=== PATIENT | female | born 1935 | race Caucasian/White ===

== ENCOUNTER 2016-12-12 12:54 | Inpatient (IN) | payer MEDICARE, OTHER ==
[~2016-12-12] VITALS: Ht 160 cm; Wt 60.5 kg
[2016-12-12] MEDS ORDERED: DORZ2SOL15 EACH EYE (13:50)
[2016-12-12] MEDS ORDERED: ASPI-110 PO (13:50)
[2016-12-12] MEDS ORDERED: TRAV0.00 LEFT EYE (13:50)
[2016-12-12] MEDS ORDERED: RISE1TAB PO (13:50)
[2016-12-12] MEDS ORDERED: MULT-65 PO (13:50)
[2016-12-12] MEDS ORDERED: ROSU10 PO (13:50)
[2016-12-18] VITALS (10 sets, daily range): BP systolic 115–162; BP diastolic 39–78; PULSE 20–85; RESP 9–18; TEMP 96.9–98.6; O2SAT 93–98
[2016-12-18] MEDS ORDERED: AMINOCAPROIC ACID INJ 250 MG/ML 20 ML VIAL IV ONE ×2 (05:00→08:09)
[2016-12-18] MEDS ORDERED: HEPARIN SODIUM - SQ 10,000 UNITS/ML VIAL SQ ONE (05:00)
[2016-12-18] MEDS ORDERED: NITROGLYCERIN-DEXTROSE INJ 250 ML IV ONE (05:00)
[2016-12-18] MEDS ORDERED: ARTIFICIAL TEARS OPTH OINT 3.5 APPLIC/3.5 GM TUBO ONE (05:00)
[2016-12-18] MEDS ORDERED: MAGNESIUM SULFATE 1000 MG/2 ML VIAL (PED) IV ONE (05:00)
[2016-12-18] MEDS ORDERED: VECURONIUM BROMIDE 10 MG VIAL IV ONE (05:00)
[2016-12-18] MEDS ORDERED: PHENYLEPHRINE HCL 10 MG/ML VIAL IV ONE (05:00)
[2016-12-18] MEDS ORDERED: PROTAMINE SULFATE 250 MG/25 ML VIAL IV ONE (05:00)
[2016-12-18] MEDS ORDERED: CALCIUM CHLORIDE 10% SOLN 1 GRAM/10 ML SYR IV ONE (05:00)
[2016-12-18] MEDS ORDERED: LIDOCAINE HCL 1% 30 ML VIAL OTHER ONE (05:00)
[2016-12-18] MEDS ORDERED: SODIUM CHLORIDE 0.9% FLUSH 10 ML FLUSH IV FLUSH PRN ×3 (05:45→12:30)
[2016-12-18] MEDS ORDERED: LACTATED RINGER'S 1000 ML IV PRN (05:45)
[2016-12-18] MEDS ORDERED: POVIDONE IODINE 5% (ANTISEPSIS KIT) 4 APPLICATIONS EACH NARE PRN (05:45)
[2016-12-18] MEDS ORDERED: CHLORHEXIDINE GLUCONATE 2 % 1 PACK (2 CLOTHS) TOPICAL PRN (05:45)
[2016-12-18] MEDS ORDERED: CHLORHEXIDINE GLUCONATE 4% SOLN 120 ML BTL TOPICAL SCH (05:45)
[2016-12-18] MEDS ORDERED: SODIUM CHLORID 0.9% 500 ML IV PRN (05:45)
[2016-12-18] MEDS ORDERED: VANCOMYCIN 1000 MG/NS 250 ML IV SCH ×2 (05:45)
[2016-12-18] MEDS ORDERED: INSULIN HUMAN REGULAR 1,000 UNITS/10 ML VIAL SQ PRN (05:45)
[2016-12-18] MEDS ORDERED: INSULIN REGULAR 100 UNITS in NS 100 ML IV SCH (05:45)
[2016-12-18] MEDS ORDERED: VANCOMYCIN 1000 MG in NS IRR BTL 1000 ML IRRIGATION SCH (05:45)
[2016-12-18] MEDS ORDERED: METOPROLOL TARTRATE 25 MG TAB PO SCH (05:45)
[2016-12-18] MEDS ORDERED: VANCOMYCIN HCL 1000 MG VIAL ONE (07:07)
[2016-12-18] MEDS ORDERED: HEPARIN SODIUM - SQ 10,000 UNITS/ML VIAL ONE ×2 (07:07→07:10)
[2016-12-18] MEDS ORDERED: methylPREDNISolone SOD SUCC 125 MG/2 ML VIAL ONE (07:07)
[2016-12-18] MEDS ORDERED: CUSTODIOL HTK IRR SOLN 1,000 ML ONE (07:09)
[2016-12-18] MEDS ORDERED: POTASSIUM CHLORIDE 20 MEQ/10 ML VIAL ONE (07:09)
[2016-12-18] MEDS ORDERED: SODIUM BICARBONATE 8.4% INJ 50 ML ONE (07:09)
[2016-12-18] MEDS ORDERED: ALBUMIN HUMAN 25% 12.5 GM/50 ML BAGP IV ONE (07:10)
[2016-12-18] MEDS ORDERED: MANNITOL INJ 50 ML ONE (07:10)
[2016-12-18] MEDS ORDERED: HEPARIN SODIUM - IV 10,000 UNITS/10 ML VIAL ONE (07:11)
[2016-12-18] MEDS ORDERED: BUPIVACAINE HCL PF 0.5% 30 ML VIAL ONE (07:44)
[2016-12-18] MEDS ORDERED: LACTATED RINGER'S 1000 ML INJ 2,000 ML IV ONE (08:09)
[2016-12-18] MEDS ORDERED: SODIUM CHLOR 0.9% 250 ML INJ 500 ML IV ONE (08:10)
[2016-12-18] MEDS ORDERED: SODIUM CHLORID 0.9% 500 ML INJ 500 ML IV ONE (08:10)
[2016-12-18] MEDS ORDERED: SODIUM CHLORIDE 0.9% INJ 100 ML IV ONE (08:10)
[2016-12-18] MEDS ORDERED: NORMOSOL R INJ 2,000 ML IV ONE (08:11)
[2016-12-18] MEDS: MUPIROCIN 2% OINT 22 GM TUBE EACH NARE SCH ×2 (09:00→21:00)
[2016-12-18] MEDS ORDERED: LACTATED RINGER'S 1000 ML INJ 500 ML IV PRN (12:28)
[2016-12-18] MEDS ORDERED: ACETAMINOPHEN 650 MG SUPP RECTAL PRN (12:30)
[2016-12-18] MEDS ORDERED: DEXTROSE 50% IN WATER 50 ML VIAL(D50) IV PUSH PRN (12:30)
[2016-12-18] MEDS ORDERED: CLEVIDIPINE INJ 50 ML IV SCH (12:30)
[2016-12-18] MEDS ORDERED: POTASSIUM CHLOR 20 MEQ PREMIX 100 ML IV PRN ×3 (12:30)
[2016-12-18] MEDS ORDERED: CALCIUM CHLORIDE 10% 1 GRAM/10 ML VIAL IV PRN (12:30)
[2016-12-18] MEDS ORDERED: MAGNESIUM SULFATE INJ 2 GM in SODIUM CHLORIDE 0.9% INJ 100 ML IV PRN ×4 (12:30)
[2016-12-18] MEDS ORDERED: INSULIN REGULAR (IV INFUSION) 100 UNITS in SODIUM CHLORIDE 0.9% INJ 99 ML IV SCH (12:30)
[2016-12-18] MEDS ORDERED: hydrALAZINE HCL 20 MG/ML VIAL IV PRN (12:30)
[2016-12-18] MEDS ORDERED: METOPROLOL TARTRATE 5 MG/5 ML VIAL IV PUSH PRN (12:30)
[2016-12-18] MEDS ORDERED: Post-op Orders (for Pharmacy) MISC OTHER ONE (12:30)
[2016-12-18] MEDS ORDERED: ACETAMINOPHEN 325 MG TAB PO PRN (12:30)
[2016-12-18] MEDS ORDERED: RESP: RACEPINEPHRINE 2.25% 0.5 ML NEB NEB PRN (12:30)
[2016-12-18] MEDS ORDERED: POTASSIUM CHLORIDE 20 MEQ CONTROLLED RELEASE TAB PO PRN ×2 (12:30)
[2016-12-18] MEDS ORDERED: RESP: ALBUTEROL 2.5 MG/IPRATROPIUM 0.5 MG NEB (PRN) NEB (12:30)
--- NOTE | 2016-12-18 12:50 | PD.OP ---
cc: Melisa Siddiqui MD; Manny Beavers MD Operative Report Date of Surgery: Dec 18, 2016 Preoperative Diagnosis: (1) Aortic stenosis due to bicuspid aortic valve (2) Diastolic CHF due to valvular disease Postoperative Diagnosis: same Procedure: Minimally invasive AVR with a 19 Intuit tissue valve MYRNA Ultrasound guided percutaneous cannulation left femoral artery and vein, perclose closure of artery Anesthesia: Dr. Duckworth Surgeon: Melisa Siddiqui Booth Operator(s): HONEY Robles Operation and Findings: The risks, benefits, complications, treatment options, and expected outcomes were discussed with the patient. The possibilities of reaction to medication, pulmonary aspiration, perforation of viscus, bleeding, recurrent infection, the need for additional procedures, failure to diagnose a condition, and creating a complication requiring transfusion or operation were discussed with the patient. The patient concurred with the proposed plan, giving informed consent. The site of surgery properly noted/marked. The patient was taken to Operating Room, identified as Brunilda Alejandra and the procedure verified as Minimally Invasive Aortic Valve Replacement. A Time Out was held and the above information confirmed. Standard monitoring lines and Cordova catheter were placed. General anesthesia was induced. The patient was prepped and draped in a sterile fashion. A 6 cm right anterior thoracotomy was performed and the 3rd rib was shingled. An Siddharth retractor was placed followed by a small chest retractor. The pericardium was opened and a pericardial sling was created using interrupted 0 silk sutures. A small 1 cm incision was made at the 6th intercostal space and an LV vent and pericardial suction were placed through this access port. The aorta was dissected posteriorly for crossclamp placement. Percutaneous access of the left femoral artery and vein was acquired with ultrasound guidance. A glide wire was required to pass the wire through the femoral artery. 2 Perclose devices were deployed in the artery for later arterial closure. The patient was heparinized for cardiopulmonary bypass. The left femoral artery was cannulated with a 15F [employer] arterial cannula. The left femoral vein was cannulated with a 21 [employer] cannula under MYRNA guidance. Antegrade Custodiol cardioplegia were employed. The patient was placed on cardiopulmonary bypass. An aortic cross-clamp was applied and the heart was arrested using cold blood cardioplegia delivered through a 14F catheter. The aorta was opened above the sinotubular ridge and the aortic valve was exposed. On opening the aorta, the valve appeared functionally bicuspid with fusion of the right and left cusps. The valve was resected as well as all annular calcification, sized for a 19 mm Intuity tissue valve which was placed with 3, 2-0 Tycron valve sutures. The valve seated well and balloon deployed. The aorta was closed with running 4-0 Prolene suture. The patient systemically rewarmed and received a hotshot dose of warm blood cardioplegia. The heart was vigorously deaired with a clamp on. The clamp was removed, deairing continued. The patient was easily weaned from cardiopulmonary bypass. Decannulation was carried out without incident and the artery was closed with the Perclose devices. The vein was controlled with digital pressure. Protamine was given. There was no adverse reaction. Intraoperative MYRNA following the procedure showed a well-seated aortic valve with no perivalvular leak and preserved ventricular function. A 32F chest tube was placed through the access port and secured with a 0 silk suture. Wound was checked for hemostasis was obtained using electrocautery. The 3rd rib was reapproximated to the sternum using a plating system. The fascia and pectoralis were closed with 0 Vicryl. The subcutaneous tissue was closed using a running 3- 0 Monocryl suture. The skin was closed with 4-0 Monocryl. The groin was closed in 2 layers. Sterile dressings were placed. At the end of the operation, all sponge, instruments, and needle counts were correct. The patient was transferred to the CVICU in stable condition. Melisa Siddiqui MD Dec 18, 2016 12:50
[2016-12-18] MEDS ORDERED: fentaNYL CITRATE 1000 MCG/20 ML VIAL ONE (13:21)
[2016-12-18] MEDS ORDERED: MIDAZOLAM HCL 5 MG/5 ML VIAL ONE ×2 (13:21)
[2016-12-18] MEDS: ACETAMINOPHEN 1000 MG/100 ML VIAL IV SCH ×2 (13:51→21:37)
--- NOTE | 2016-12-18 14:25 | RADRPT ---
EXAM DATE/TIME: 12/18/2016 13:14 [facility] COMPARISON: CHEST PA & LAT, December 12, 2016, 14:36. INDICATIONS : Post CABG. MEDICAL HISTORY : Osteoarthritis. SURGICAL HISTORY : CABG. ENCOUNTER: Subsequent ACUITY: 1 week PAIN SCORE: Non-responsive. LOCATION: Bilateral chest FINDINGS: Patient postoperative what appears to be aortic valve replacement. Right central line in right atrium . Right chest tube present. Bilateral somewhat patchy airspace disease and interstitial prominence wh ich may or present mild edema. Likely trace pleural fluid present. No significant pneumothorax. CONCLUSION: 1. Postoperative aortic valve replacement. Right chest tube without pneumothorax. Right central line in right atrium. Bilateral airspace disease, right greater than left. Elijah Hyatt MD on December 18, 2016 at 14:21 Board Certified Radiologist. This report was verified electronically.
[2016-12-18] MEDS: ONDANSETRON HCL 4 MG/2 ML VIAL IV PUSH PRN (16:11)
[2016-12-18] MEDS: RESP: ALBUTEROL 2.5 MG/IPRATROPIUM 0.5 MG NEB (SCH) NEB ×2 (16:23→21:25)
[2016-12-18] MEDS: CALCIUM CHLORIDE INJ 1 GM in SODIUM CHLORIDE 0.9% INJ 100 ML IV PRN ×2 (16:39→21:37)
[2016-12-18] MEDS: LATANOPROST 0.005% OPHT SOLN 2.5 ML BTL LEFT EYE SCH (21:00)
[2016-12-18] MEDS: DORZOLAMIDE/TIMOLOL OPTH SOLN 10 ML BTL EACH EYE SCH (21:00)
[2016-12-19] VITALS (13 sets, daily range): BP systolic 119–148; BP diastolic 46–68; PULSE 76–96; RESP 14–18; TEMP 97.4–99.1; O2SAT 93–98
[2016-12-19] MEDS: ACETAMINOPHEN 1000 MG/100 ML VIAL IV SCH ×2 (01:58→08:12)
[2016-12-19] MEDS: RESP: ALBUTEROL 2.5 MG/IPRATROPIUM 0.5 MG NEB (SCH) NEB ×5 (04:19→19:57)
[2016-12-19 04:41] LABS: HEMATOCRIT 36.4 % (35.0-46.0); MEAN CELL VOLUME 89.4 FL (80.0-100.0); MEAN CORPUSCULAR HEMOGLOBIN 30.1 PG (27.0-34.0); MEAN CORPUSCULAR HGB CONC 33.6 % (32.0-36.0); PLATELET COUNT 126 TH/MM3 (150-450); RED BLOOD COUNT 4.07 MIL/MM3 (4.00-5.30); RED CELL DISTRIBUTION WIDTH 13.4 % (11.6-17.2); REVIEW FLAG FINAL
[2016-12-19 05:17] LABS: BICARBONATE 27.6 MEQ/L (21.0-32.0); MAGNESIUM 2.2 MG/DL (1.5-2.5)
[2016-12-19] MEDS: PANTOPRAZOLE SOD 40 MG DELAYED RELEASE TAB PO SCH (06:08)
[2016-12-19] MEDS: ONDANSETRON HCL 4 MG/2 ML VIAL IV PUSH PRN ×2 (06:08→22:28)
--- NOTE | 2016-12-19 06:10 | RADRPT ---
EXAM DATE/TIME: 12/19/2016 04:54 [facility] COMPARISON: CHEST SINGLE AP, December 18, 2016, 13:14. INDICATIONS : Chest pain after breathing treatments. MEDICAL HISTORY : Chronic obstructive pulmonary disease. SURGICAL HISTORY : Valve replacement. ENCOUNTER: Initial ACUITY: 2 days PAIN SCORE: 7/10 LOCATION: Bilateral chest FINDINGS: A single view of the chest demonstrates better aeration of the lungs. Minimal interstitial edema. Hea rt normal in size. Right-sided chest tube stable position without pneumothorax. Right jugular central line is stable as well. Osseous structures are intact. CONCLUSION: Lungs are better aerated with some minimal interstitial edema. Irwin Dorman MD on December 19, 2016 at 6:07 Board Certified Radiologist. This report was verified electronically.
[2016-12-19] MEDS ORDERED: RISEDRONATE 5 MG PO SCH (09:00)
[2016-12-19] MEDS: MUPIROCIN 2% OINT 22 GM TUBE EACH NARE SCH (09:00)
[2016-12-19] MEDS: DORZOLAMIDE/TIMOLOL OPTH SOLN 10 ML BTL EACH EYE SCH (09:05)
[2016-12-19] MEDS: ASPIRIN 81 MG CHEW TAB PO SCH (09:06)
[2016-12-19] MEDS: ATORVASTATIN 20 MG TAB PO SCH (09:06)
[2016-12-19] MEDS: MULTIVITAMIN TAB PO SCH (09:06)
[2016-12-19] MEDS ORDERED: FUROSEMIDE 40 MG/4 ML VIAL IV PUSH ONE (10:15)
[2016-12-19] MEDS ORDERED: diphenhydrAMINE HCL 50 MG CAP PO PRN (10:15)
[2016-12-19] MEDS ORDERED: DEXTROSE 50% IN WATER 50 ML VIAL(D50) IV PRN (10:15)
[2016-12-19] MEDS ORDERED: SOD PHOSPHATE/SOD BIPHOSPHATE (ADULT) ENEMA 133ML RECTAL PRN (10:15)
[2016-12-19] MEDS ORDERED: BISACODYL 10 MG SUPP RECTAL PRN (10:15)
[2016-12-19] MEDS ORDERED: GLUCAGON 1 MG/ML VIAL OTHER PRN (10:15)
--- NOTE | 2016-12-19 10:21 | PD.CAR.PN ---
CVT Progress Note CVT: POD #: 1 Subjective/Hospital Course: 12/18/16 Doing well. No complaints Objective: Vital Signs Date Time Temp Pulse Resp B/P Pulse Ox O2 Delivery O2 Flow Rate FiO2 12/19/16 08:46 95 Nasal Cannula 4.00 12/19/16 07:09 14 12/19/16 07:00 89 12/19/16 07:00 98 Nasal Cannula 4.00 12/19/16 07:00 98.7 87 14 119/50 96 134/46 12/19/16 04:19 98 Nasal Cannula 4.00 12/19/16 04:00 86 12/19/16 04:00 98.2 86 16 130/53 98 142/50 12/19/16 04:00 98 Nasal Cannula 4.00 12/19/16 03:00 97 Nasal Cannula 4.00 12/19/16 01:00 97 Simple Mask 6.00 12/19/16 00:00 97.4 92 18 131/60 96 148/51 12/19/16 00:00 96 Simple Mask 8.00 12/19/16 00:00 92 12/18/16 21:25 97 Simple Mask 10.00 12/18/16 20:00 96 Simple Mask 10.00 12/18/16 20:00 82 12/18/16 20:00 98.0 83 18 115/56 96 128/58 12/18/16 16:36 97 Nasal Cannula 4.00 12/18/16 16:20 98.6 12/18/16 15:00 80 12/18/16 15:00 98 Partial Non-Rebreather 10.00 12/18/16 15:00 96.9 76 12 140/68 98 148/63 12/18/16 14:21 9 12/18/16 13:42 65 12/18/16 13:17 98.6 12/18/16 13:10 94 Simple Mask 10.00 12/18/16 13:00 97.4 70 9 119/39 94 133/53 12/18/16 13:00 94 Partial Non-Rebreather 10.00 Labs: Laboratory Tests Test 12/19/16 04:15 White Blood Count 17.0 TH/MM3 (4.0-11.0) Red Blood Count 4.07 MIL/MM3 (4.00-5.30) Hemoglobin 12.2 GM/DL (11.6-15.3) Hematocrit 36.4 % (35.0-46.0) Mean Corpuscular Volume 89.4 FL (80.0-100.0) Mean Corpuscular Hemoglobin 30.1 PG (27.0-34.0) Mean Corpuscular Hemoglobin 33.6 % Concent (32.0-36.0) Red Cell Distribution Width 13.4 % (11.6-17.2) Platelet Count 126 TH/MM3 (150-450) Mean Platelet Volume 9.6 FL (7.0-11.0) Sodium Level 142 MEQ/L (136-145) Potassium Level 4.0 MEQ/L (3.5-5.1) Chloride Level 106 MEQ/L (98-107) Carbon Dioxide Level 27.6 MEQ/L (21.0-32.0) Anion Gap 8 MEQ/L (5-15) Blood Urea Nitrogen 16 MG/DL (7-18) Creatinine 0.77 MG/DL (0.50-1.00) Estimat Glomerular Filtration 72 ML/MIN (>89) Rate Random Glucose 83 MG/DL (74-106) Calcium Level 8.5 MG/DL (8.5-10.1) Magnesium Level 2.2 MG/DL (1.5-2.5) Result Diagram: 12/19/1641412/19/16 0415 Imaging: Last 24 hours Impressions Chest X-Ray 12/19/16 0500 Signed Impressions: Service Date/Time: Monday, December 19, 2016 04:54 - CONCLUSION: Lungs are better aerated with some minimal interstitial edema. Irwin Droman MD Cardiovascular: RRR Telemetry: NSR Pulmonary: CTA, few crackles GI/: NABS, NT Incision: dry and intact CT: 70ml/12 hrs. Plan: Encourage ambulation Beta june Diurese Supp K Advance diet continue ASA Transfer to stepdown Melisa Siddiqui MD Dec 19, 2016 10:21
[2016-12-19] MEDS: METOPROLOL TARTRATE 25 MG TAB PO SCH ×2 (12:41→22:32)
[2016-12-19] MEDS: INSULIN ASPART SUPPLEMENTAL SCALE SQ SCH ×3 (14:16→23:22)
--- NOTE | 2016-12-19 16:33 | EKG ---
Date Performed: 12/19/2016 Time Performed: 04:30:12 PTAGE: 81 years EKG: Sinus rhythm Normal ECG PREVIOUS TRACING 12/12/16 @ 13.27.12 Compared to prior tracing no significant change DOCTOR: Nixon Huerta Interpretating Date/Time 12/19/2016 16:32:42
[2016-12-19] MEDS: DOCUSATE SODIUM 100 MG CAP PO SCH (22:30)
[2016-12-19] MEDS: LATANOPROST 0.005% OPHT SOLN 2.5 ML BTL LEFT EYE SCH (22:30)
[2016-12-19] MEDS: SENNOSIDES 8.6 MG TAB PO SCH (22:46)
[2016-12-19] MEDS: ACETAMINOPHEN/HYDROcodone 325 MG/5 MG TAB PO PRN (23:05)
[2016-12-20] VITALS (26 sets, daily range): BP systolic 98–137; BP diastolic 45–82; PULSE 78–100; RESP 16–18; TEMP 97.2–98.2; O2SAT 94–100
[2016-12-20] MEDS: PANTOPRAZOLE SOD 40 MG DELAYED RELEASE TAB PO SCH (06:00)
[2016-12-20 06:59] LABS: BICARBONATE 33.3 MEQ/L (21.0-32.0); MAGNESIUM 2.3 MG/DL (1.5-2.5); POTASSIUM 4.3 MEQ/L (3.5-5.1)
[2016-12-20 07:14] LABS: AUTOMATED NEUTROPHIL # 13.6 TH/MM3 (1.8-7.7); EOSINOPHIL % 0.1 % (0.0-4.0); HEMATOCRIT 34.3 % (35.0-46.0); LYMPHOCYTE # 1.7 TH/MM3 (1.0-4.8); MEAN CELL VOLUME 90.7 FL (80.0-100.0); MEAN CORPUSCULAR HEMOGLOBIN 30.2 PG (27.0-34.0); MEAN CORPUSCULAR HGB CONC 33.3 % (32.0-36.0); MONO % 9.2 % (0.0-8.0); NEUT % 80.7 % (16.0-70.0); PLATELET COUNT 98 TH/MM3 (150-450); RED BLOOD COUNT 3.78 MIL/MM3 (4.00-5.30); RED CELL DISTRIBUTION WIDTH 13.9 % (11.6-17.2); WHITE BLOOD COUNT 16.9 TH/MM3 (4.0-11.0)
--- NOTE | 2016-12-20 07:15 | PD.CAR.PN ---
CVT Progress Note CVT: POD #: 2 Subjective/Hospital Course: 12/19/16 Doing well. No complaints 12/20/16 Doing well this morning. No complaints. Objective: Vital Signs Date Time Temp Pulse Resp B/P Pulse Ox O2 Delivery O2 Flow Rate FiO2 12/20/16 04:36 97.2 83 16 103/51 97 12/20/16 04:17 95 Nasal Cannula 3.00 12/20/16 01:20 98.2 88 16 124/65 94 12/20/16 01:18 94 Nasal Cannula 3.00 12/19/16 21:00 98 Nasal Cannula 3.00 12/19/16 20:30 99.1 96 16 121/55 95 12/19/16 19:57 93 Nasal Cannula 3.00 12/19/16 18:00 87 12/19/16 17:00 86 12/19/16 16:00 83 12/19/16 15:00 97.6 81 18 130/68 97 12/19/16 15:00 87 12/19/16 15:00 97 Nasal Cannula 3.00 12/19/16 11:38 97 3.00 12/19/16 11:00 97.7 76 16 128/60 98 Arterial Line 12/19/16 11:00 76 12/19/16 11:00 98 Nasal Cannula 4.00 12/19/16 08:46 95 Nasal Cannula 4.00 Labs: Laboratory Tests Test 12/20/16 05:45 Sodium Level 140 MEQ/L (136-145) Potassium Level 4.3 MEQ/L (3.5-5.1) Chloride Level 103 MEQ/L (98-107) Carbon Dioxide Level 33.3 MEQ/L (21.0-32.0) Anion Gap 4 MEQ/L (5-15) Blood Urea Nitrogen 23 MG/DL (7-18) Creatinine 0.74 MG/DL (0.50-1.00) Estimat Glomerular Filtration 75 ML/MIN (>89) Rate Random Glucose 94 MG/DL (74-106) Calcium Level 8.3 MG/DL (8.5-10.1) Magnesium Level 2.3 MG/DL (1.5-2.5) Result Diagram: 12/19/16 0415 12/20/16 0545 Cardiovascular: RRR Telemetry: NSR Pulmonary: CTA GI/: NABS, NT Incision: dry and intact CT: ~70ml/12hrs Plan: Ambulate x 6 Remove chest tube Encourage PO intake, stim BM Anticipate d/c in 1-2 days Melisa Siddiqui MD Dec 20, 2016 07:15
[2016-12-20 07:23] LABS: HEMO FLAGS AUTO DIFF
[2016-12-20] MEDS: MULTIVITAMINS/MINERALS THERAPEUTIC TAB PO SCH (08:57)
[2016-12-20] MEDS: ASPIRIN 81 MG CHEW TAB PO SCH (08:58)
[2016-12-20] MEDS: MAGNESIUM HYDROXIDE SUSP 30 ML CUP PO SCH (08:58)
[2016-12-20] MEDS: MULTIVITAMIN TAB PO SCH (08:58)
[2016-12-20] MEDS: POLYETHYLENE GLYCOL 17 GM PKG PO SCH (08:58)
[2016-12-20] MEDS: ATORVASTATIN 20 MG TAB PO SCH (08:59)
[2016-12-20] MEDS: METOPROLOL TARTRATE 25 MG TAB PO SCH ×2 (08:59→20:26)
[2016-12-20] MEDS: ACETAMINOPHEN/HYDROcodone 325 MG/5 MG TAB PO PRN (09:00)
[2016-12-20] MEDS: MUPIROCIN 2% OINT 22 GM TUBE EACH NARE SCH ×2 (09:00→20:26)
[2016-12-20] MEDS: DOCUSATE SODIUM 100 MG CAP PO SCH ×2 (09:00→20:26)
[2016-12-20] MEDS: DORZOLAMIDE/TIMOLOL OPTH SOLN 10 ML BTL EACH EYE SCH ×2 (09:01→20:23)
[2016-12-20 09:02] LABS: BANDS 20 % (0-6); METAMYELOCYTES 1 % (0-1); NEUTROPHIL # MANUAL DIFF 14.9 TH/MM3 (1.8-7.7); POLYS (SEG NEUTROPHILS) 67 % (16-70); WBC DIFF SAMPLE 100
[2016-12-20 09:03] LABS: PLATELET ESTIMATE SMEAR LOW (NORMAL); PLATELET MORPHOLOGY NORMAL (NORMAL); SCAN/DIFF FINAL DIFF MANUAL
--- NOTE | 2016-12-20 09:20 | RADRPT ---
EXAM DATE/TIME: 12/20/2016 08:52 [facility] COMPARISON: CHEST SINGLE AP, December 19, 2016, 4:54. INDICATIONS : Shortness of breath MEDICAL HISTORY : Chronic obstructive pulmonary disease. SURGICAL HISTORY : Heart valve replacement ENCOUNTER: Subsequent ACUITY: 3 days PAIN SCORE: 5/10 LOCATION: Bilateral chest FINDINGS: A single view of the chest demonstrates a moderate to large right pneumothorax with 3.1 cm of separat ion at the apex and 2.6 cm at the right costophrenic angle. The previously noted right chest tube has been no. The left lung is grossly clear. There is atelectasis in the right lower lung. There are no pleural effusions. The heart size is stable. The right-sided central line remains in place.. Findings were immediately called by telephone to the nurse taking care of this patient. CONCLUSION: Moderate to large right-sided pneumothorax. Mayo Priest MD on December 20, 2016 at 9:12 Board Certified Radiologist. This report was verified electronically.
[2016-12-20] MEDS: INSULIN ASPART SUPPLEMENTAL SCALE SQ SCH ×4 (10:00→20:26)
[2016-12-20] MEDS ORDERED: ATROPINE SULFATE 1 MG/10 ML SYRINGE ONE (10:43)
[2016-12-20] MEDS ORDERED: EPINEPHrine HCL (1:10,000) 1 MG/10 ML SYRINGE ONE (10:43)
[2016-12-20] MEDS ORDERED: LORazepam 2 MG/ML VIAL ONE (10:52)
[2016-12-20] MEDS ORDERED: fentaNYL CITRATE 250 MCG/5 ML AMP ONE (10:53)
--- NOTE | 2016-12-20 11:38 | PD.RAD ---
Post Procedure Progress Note Pre Procedure Diagnosis: (1) Pneumothorax, right Post Procedure Diagnosis: (1) Pneumothorax, right Procedure Date: Dec 20, 2016 Supervising Radiologist: Clarence Fournier Anesthesia: Local, Analgesia Plan of Activity Patient to Unit: PACU Patient Condition: Good Additional Comments: Right anterior, apical chest tube placed. Tube in good position right lung reexpanded. See PACS Report for procedural detail/treatment Clarence Fournier MD Dec 20, 2016 11:38
--- NOTE | 2016-12-20 12:11 | RADRPT ---
EXAM DATE/TIME: 12/20/2016 11:53 [facility] COMPARISON: CHEST SINGLE AP, December 20, 2016, 8:52. INDICATIONS : Chest tube placement. MEDICAL HISTORY : Chronic obstructive pulmonary disease. SURGICAL HISTORY : Heart valve replacement. ENCOUNTER: Initial ACUITY: 1 day PAIN SCORE: Non-responsive. LOCATION: Bilateral chest FINDINGS: Status postplacement of a small right chest tube in the apex of the right hemithorax. The previously noted pneumothorax has resolved. There continues to be infiltrates in both lung bases. CONCLUSION: 1. Right sided chest tube in place. 2. No pneumothorax. Mayo Priest MD on December 20, 2016 at 12:08 Board Certified Radiologist. This report was verified electronically.
[2016-12-20] MEDS: LATANOPROST 0.005% OPHT SOLN 2.5 ML BTL LEFT EYE SCH (20:24)
[2016-12-20] MEDS: SENNOSIDES 8.6 MG TAB PO SCH (20:26)
[2016-12-21] VITALS (27 sets, daily range): BP systolic 108–139; BP diastolic 56–78; PULSE 80–97; RESP 16; TEMP 97.8–99.4; O2SAT 89–100
[2016-12-21] MEDS: INSULIN ASPART SUPPLEMENTAL SCALE SQ SCH ×3 (02:00→10:00)
[2016-12-21] MEDS: PANTOPRAZOLE SOD 40 MG DELAYED RELEASE TAB PO SCH (05:36)
--- NOTE | 2016-12-21 06:23 | RADRPT ---
EXAM DATE/TIME: 12/21/2016 05:24 [facility] COMPARISON: CHEST EXPIRATION ONLY, December 20, 2016, 11:53. INDICATIONS : Shortness of breath, possible pulmonary disease. MEDICAL HISTORY : Chronic obstructive pulmonary disease. SURGICAL HISTORY : Valve replacement ENCOUNTER: Subsequent ACUITY: 2 days PAIN SCORE: Non-responsive. LOCATION: Bilateral chest FINDINGS: A single frontal expiratory view of the chest was performed. Bibasilar atelectasis. Right-sided small caliber chest tube without pneumothorax. Right jugular central line stable in position. CONCLUSION: Stable chest. No pneumothorax. Irwin Dorman MD on December 21, 2016 at 6:20 Board Certified Radiologist. This report was verified electronically.
[2016-12-21] MEDS: MULTIVITAMINS/MINERALS THERAPEUTIC TAB PO SCH (08:55)
[2016-12-21] MEDS: POLYETHYLENE GLYCOL 17 GM PKG PO SCH (08:56)
[2016-12-21] MEDS: MAGNESIUM HYDROXIDE SUSP 30 ML CUP PO SCH (08:56)
[2016-12-21] MEDS: MULTIVITAMIN TAB PO SCH (08:56)
[2016-12-21] MEDS: METOPROLOL TARTRATE 25 MG TAB PO SCH ×2 (08:57→20:11)
[2016-12-21] MEDS: ASPIRIN 81 MG CHEW TAB PO SCH (08:57)
[2016-12-21] MEDS: MUPIROCIN 2% OINT 22 GM TUBE EACH NARE SCH ×2 (08:57→20:12)
[2016-12-21] MEDS: DOCUSATE SODIUM 100 MG CAP PO SCH ×2 (08:57→20:11)
[2016-12-21] MEDS: ATORVASTATIN 20 MG TAB PO SCH (08:57)
[2016-12-21] MEDS: DORZOLAMIDE/TIMOLOL OPTH SOLN 10 ML BTL EACH EYE SCH ×2 (08:58→20:12)
--- NOTE | 2016-12-21 10:44 | PD.CAR.PN ---
CVT Progress Note CVT: POD #: 3 Subjective/Hospital Course: 12/19/16 Doing well. No complaints 12/20/16 Doing well this morning. No complaints. 12/21/16 Chest tube was mostly pulled out and patient had a significant right PTX - treated with a pigtail in IR. Lung re-expanded. No complaints today Objective: Vital Signs Date Time Temp Pulse Resp B/P Pulse Ox O2 Delivery O2 Flow Rate FiO2 12/21/16 10:00 86 12/21/16 09:00 82 12/21/16 08:00 90 12/21/16 08:00 98.0 88 16 128/78 100 12/21/16 08:00 100 Nasal Cannula 2.00 12/21/16 07:00 88 12/21/16 05:00 92 12/21/16 04:00 80 12/21/16 03:51 97.8 88 16 139/72 100 12/21/16 03:51 100 Nasal Cannula 2.00 12/21/16 02:54 85 12/21/16 02:00 86 12/21/16 01:00 84 12/21/16 00:00 88 12/20/16 23:45 100 Nasal Cannula 4.00 12/20/16 23:45 98.0 86 16 137/66 100 12/20/16 23:00 85 12/20/16 22:00 86 12/20/16 21:00 88 12/20/16 20:06 96 Nasal Cannula 3.00 12/20/16 20:00 100 12/20/16 19:25 98 Nasal Cannula 4.00 12/20/16 19:25 97.8 92 16 121/58 98 12/20/16 19:00 88 12/20/16 18:00 80 12/20/16 17:00 82 12/20/16 16:00 95 Nasal Cannula 3.00 12/20/16 16:00 78 12/20/16 15:00 80 12/20/16 15:00 98.0 80 16 127/82 97 12/20/16 14:00 80 12/20/16 14:00 122/78 12/20/16 13:30 127/82 12/20/16 13:00 132/82 12/20/16 13:00 78 12/20/16 12:30 124/77 12/20/16 12:15 98/68 12/20/16 12:00 97 Nasal Cannula 3.00 12/20/16 12:00 104/72 12/20/16 12:00 86 12/20/16 11:45 97.9 82 16 112/78 98 Result Diagram: 12/20/16 0545 12/20/16 0545 Imaging: Last 24 hours Impressions Chest X-Ray 12/21/16 0000 Signed Impressions: Service Date/Time: Wednesday, December 21, 2016 05:24 - CONCLUSION: Stable chest. No pneumothorax. Irwin Dorman MD Cardiovascular: RRR Telemetry: NSR Pulmonary: CTA GI/: NABS, NT Incision: dry and intact CT: min output, no air leak Plan: Remove chest tube Diurese Plan d/c tomorrow Melisa Siddiqui MD Dec 21, 2016 10:44
[2016-12-21] MEDS ORDERED: FUROSEMIDE 20 MG/2 ML VIAL IV PUSH ONE (10:45)
[2016-12-21] MEDS: SENNOSIDES 8.6 MG TAB PO SCH (20:11)
[2016-12-21] MEDS: LATANOPROST 0.005% OPHT SOLN 2.5 ML BTL LEFT EYE SCH (20:12)
[2016-12-22] VITALS (15 sets, daily range): BP systolic 126–128; BP diastolic 58–72; PULSE 82–93; RESP 18; TEMP 98–99; O2SAT 93–98
[2016-12-22] MEDS: PANTOPRAZOLE SOD 40 MG DELAYED RELEASE TAB PO SCH (05:34)
[2016-12-22] MEDS ORDERED: HYDR-3516 PO (07:25)
[2016-12-22] MEDS ORDERED: PANT40TA3 PO (07:25)
[2016-12-22] MEDS ORDERED: METO25TA3 PO (07:25)
[2016-12-22] MEDS ORDERED: DOCU1CAP39 PO (07:25)
--- NOTE | 2016-12-22 07:27 | HHI.FF ---
Face to Face Verification Diagnosis: (1) Aortic stenosis due to bicuspid aortic valve Physical Therapy Order: Evaluate and Treat, Improve ambulation Occupational Therapy Order: Evaluate and Treat Home Health Nursing Order: Medical education Signs/symptoms of disease process Medication education-adverse effect Nursing assessment with vital signs I have seen patient Brunilda Alejandra on 12/22/16. My clinical findings support the need for the requested home health care services because: Deconditioned w/ increased weakness Limited ability to care for self High risk of falls I certify that my clinical findings support that this patient is homebound because: Post-op weakness Unsafe to leave home unassisted Melisa Siddiqui MD Dec 22, 2016 07:26
[2016-12-22] MEDS: POLYETHYLENE GLYCOL 17 GM PKG PO SCH (08:27)
[2016-12-22] MEDS: MULTIVITAMIN TAB PO SCH (08:29)
[2016-12-22] MEDS: ATORVASTATIN 20 MG TAB PO SCH (08:29)
[2016-12-22] MEDS: MAGNESIUM HYDROXIDE SUSP 30 ML CUP PO SCH (08:29)
[2016-12-22] MEDS: ASPIRIN 81 MG CHEW TAB PO SCH (08:29)
[2016-12-22] MEDS: METOPROLOL TARTRATE 25 MG TAB PO SCH (08:29)
[2016-12-22] MEDS: DOCUSATE SODIUM 100 MG CAP PO SCH (08:29)
--- NOTE | 2016-12-22 11:39 | HHI.DS ---
Discharge Summary Admission Date Dec 18, 2016 at 05:23 Discharge Date: Dec 22, 2016 Admitting Diagnosis Severe aortic stenosis (1) Aortic stenosis due to bicuspid aortic valve Diagnosis: Principal (2) Diastolic CHF due to valvular disease Diagnosis: Principal (3) S/P AVR (aortic valve replacement) Diagnosis: Secondary Procedures Minimally invasive AVR with a 19 Intuity tissue valve Brief History 81 y/o female presents with severe and exertional dyspnea. CBC/BMP: 12/20/16 0545 12/20/16 0545 Significant Findings Laboratory Tests Test 12/20/16 05:45 White Blood Count 16.9 TH/MM3 (4.0-11.0) Red Blood Count 3.78 MIL/MM3 (4.00-5.30) Hemoglobin 11.4 GM/DL (11.6-15.3) Hematocrit 34.3 % (35.0-46.0) Platelet Count 98 TH/MM3 (150-450) Neutrophils (%) (Auto) 80.7 % (16.0-70.0) Monocytes (%) (Auto) 9.2 % (0.0-8.0) Neutrophils # (Auto) 13.6 TH/MM3 (1.8-7.7) Monocytes # (Auto) 1.6 TH/MM3 (0-0.9) Band Neutrophils % 20 % (0-6) Lymphocytes % 6 % (9-44) Neutrophils # (Manual) 14.9 TH/MM3 (1.8-7.7) Platelet Estimate LOW (NORMAL) Carbon Dioxide Level 33.3 MEQ/L (21.0-32.0) Anion Gap 4 MEQ/L (5-15) Blood Urea Nitrogen 23 MG/DL (7-18) Estimat Glomerular Filtration 75 ML/MIN (>89) Rate Calcium Level 8.3 MG/DL (8.5-10.1) Imaging Last Impressions Chest X-Ray 12/21/16 0000 Signed Impressions: Service Date/Time: Wednesday, December 21, 2016 05:24 - CONCLUSION: Stable chest. No pneumothorax. Irwin Dorman MD PE at Discharge chest - CTA COR - RRR ABD - soft, NT wound - dry and intact Hospital Course Subjective/Hospital Course: Minimally invasive AVR on 12/18/16 12/19/16 Doing well. No complaints. Transfer to stepdown 6/24/17 Doing well this morning. No complaints. 12/21/16 Chest tube was mostly pulled out and patient had a significant right PTX - treated with a pigtail in IR. Lung re-expanded. No complaints today Pt Condition on Discharge: Good Discharge Disposition: Disch w/ Home Health Serv Discharge Instructions DIET: Follow Instructions for: Heart Healthy Diet Activities you can perform: Weight Bearing as Jennifer, Full Weight Bearing, Shower Only-No Bath Activities to avoid: Driving Follow up Referrals: Appointment for Follow Up - 4 Weeks with [facility] - 3 Weeks @ [facility] with Manny Beavers MD PCP Follow-up - 2 Weeks with Kari Wiseman D.o. New Orders: 2D ECHO - 3 Weeks X-RAY CHEST PA & LAT - 3 Weeks New Medications: Docusate Sodium (Dok) 100 Mg Cap 100 MG PO BID Constipation #28 Ref 0 CAP Hydrocodone-Acetaminophen (Hydrocodone-Acetaminophen) 5-325 mg Tab 1 TAB PO Q3H PRN PAIN SCALE 1 TO 5 #30 Ref 0 TAB Metoprolol Tartrate (Metoprolol Tartrate) 25 Mg Tab 12.5 MG PO Q12HR Blood Pressure Management #60 Ref 3 TAB Pantoprazole (Pantoprazole) 40 Mg Tab 40 MG PO DAILY@06 Prevent Stress Ulcers #14 Ref 0 TAB Continued Medications: Aspirin DR (Aspirin 81) 81 Mg Tabdr 81 MG PO DAILY Ref 0 TAB Dorzolamide-Timolol Opth Drops (Dorzolamide-Timolol Opth Drops) 22.3-6.8 Mg/Ml Soln 1 DROP EACH EYE BID Glaucoma Ref 0 BOTTLE Multiple Vitamin (Multi-Vitamin Daily) 1 Tab Tab 1 TAB PO DAILY Nutritional Supplement Ref 0 TAB Risedronate (Risedronate) 5 Mg Tab 5 MG PO DAILY Manage Osteoporosis #30 Ref 0 TAB Rosuvastatin (Crestor) 10 Mg Tab 10 MG PO DAILY Cholesterol Management #30 Ref 0 TAB Travoprost Opth Drops (Travatan Z Opth Drops) 0.004 % Soln 1 DROP LEFT EYE HS Glaucoma #1 Ref 0 BOTTLE Melisa Siddiqui MD Dec 22, 2016 11:39
--- NOTE | 2016-12-25 14:07 | RADRPT ---
EXAM DATE/TIME: 12/20/2016 11:16 [facility] COMPARISON: No previous studies available for comparison. INDICATIONS : Patient with a history of pneumothorax. MEDICAL HISTORY : Cardiac disease SURGICAL HISTORY : None ENCOUNTER: Initial ACUITY: 1 day PAIN SCORE: 3/10 LOCATION: Right chest FLUORO TIME: 2.5 minutes IMAGE SERIES: 1 MEDICATION(S): 1.) 1 mg lorazepam (Ativan) IV 2.) 50 mcg fentanyl (Sublimaze) IV DEVICE(S): 1.) 10 Thai non-locking catheter PROCEDURE : 1. Fluoroscopically guided chest tube placement. 2. Conscious sedation with continuous EKG and oximetry monitoring. The risks, benefits and alternatives to the procedure were explained and verbal and written consent w as obtained. The site was prepped in sterile fashion. Full sterile technique was used, including ca p, mask, sterile gloves and gown and a large sterile sheet. Hand hygiene and 2% chlorhexidine and/or betadine/alcohol prep was utilized per protocol for cutaneous antisepsis. The skin and subcutaneous tissues were infiltrated with local anesthetic solution. With fluoroscopic guidance the chest was punctured between the first and second interspace and the pr escribed catheter was placed in the lung apex. Wall suction was applied. Post procedure images demon strate satisfactory position of the tube. The catheter was sutured in place and a Percu-Stay was heidi lied. Conscious sedation was performed with the prescribed dosages and duration as above in the presence of an independent trained radiology nurse to assist in the monitoring of the patient. EKG and oximetry remained stable throughout the procedure. The patient tolerated the procedure well and there were n o complications. The patient was sent to post anesthesia recovery in stable condition. CONCLUSION: Uncomplicated chest tube placement as above. Clarence Fournier MD on December 25, 2016 at 14:03 Board Certified Radiologist. This report was verified electronically.
== END 2016-12-22 13:18 | disposition home health service (06) | DRG 220 ==
LOC: HSDI 12-18 05:23 → HCVR 12-18 12:58 → HCIN 12-19 13:57
PROVIDERS: ADMIT Thoracic Surgery (Cardiothoracic Vascular Surgery); ATTEND Thoracic Surgery (Cardiothoracic Vascular Surgery)
PROC: B24BZZ4 Ultrasonography of Heart with Aorta, Transesophageal (ICD-10-PCS; 2016-12-18)
PROC: 02RF08Z Replacement of Aortic Valve with Zooplastic Tissue, Open Approach (ICD-10-PCS; principal; 2016-12-18 07:38)
PROC: 5A1221Z Performance of Cardiac Output, Continuous (ICD-10-PCS; 2016-12-18 07:38)
DX: Q23.1 Congenital insufficiency of aortic valve (principal); I50.30 Unspecified diastolic (congestive) heart failure; J44.9 Chronic obstructive pulmonary disease, unspecified; J95.811 Postprocedural pneumothorax; H40.9 Unspecified glaucoma; M81.0 Age-related osteoporosis without current pathological fracture; E78.5 Hyperlipidemia, unspecified; Z85.828 Personal history of other malignant neoplasm of skin
CPT/HCPCS: 32557; 71010; 76937; 80048; 82948; 83735; 85007; 85014; 85027; 86850; 86900; 86901; 86920; 88305; 88311; 93005; 93318; 94150; 94640; 94664; 94667; 99152; 99153; C1713; C1729; C1769; C9248; J0131; J0171; J0461; J0690; J1644; J1815; J1940; J2060; J2150; J2250; J2370; J2405; J2720; J2930; J3010; J3370; J3475; J3480; J7040; J7050; J7120; P9047

== ENCOUNTER → 2016-12-12 | Outpatient (CLI) | payer MEDICARE, OTHER ==
[~2016-12-12] MED LIST: ASPI-110 PO; DOCU1CAP39 PO; DORZ2SOL15 EACH EYE; HYDR-3516 PO; METO25TA3 PO; MULT-65 PO; PANT40TA3 PO; RISE1TAB PO; ROSU10 PO; TRAV0.00 LEFT EYE
[2016-12-12 13:45] LABS: AUTOMATED NEUTROPHIL # 3.8 TH/MM3 (1.8-7.7); BASOPHIL % 0.6 % (0.0-2.0); EOSINOPHIL # 0.4 TH/MM3 (0-0.4); EOSINOPHIL % 5.3 % (0.0-4.0); HEMATOCRIT 44.2 % (35.0-46.0); HEMO FLAGS DIFF FINAL; LYMPH % 35.1 % (9.0-44.0); LYMPHOCYTE # 2.6 TH/MM3 (1.0-4.8); MEAN CELL VOLUME 89.9 FL (80.0-100.0); MEAN CORPUSCULAR HGB CONC 33.4 % (32.0-36.0); MONO % 8.7 % (0.0-8.0); NEUT % 50.3 % (16.0-70.0); PLATELET COUNT 201 TH/MM3 (150-450); RED BLOOD COUNT 4.92 MIL/MM3 (4.00-5.30); RED CELL DISTRIBUTION WIDTH 13.4 % (11.6-17.2); WHITE BLOOD COUNT 7.5 TH/MM3 (4.0-11.0)
[2016-12-12 13:53] LABS: BLOOD, URINE SMALL (NEG); COMMENT (UR) CULT NOT INDICATED; CULTURE IF INDICATED CULT NOT INDICATED; GLUCOSE,URINE NEG (NEG); KETONE, URINE NEG (NEG); NITRITE,URINE NEG (NEG); PH, URINE 6.5 (5.0-8.5); SQUAMOUS EPITHELIAL CELL URINE <1 /hpf (0-5); URINE COLOR LIGHT-YELLOW (YELLW/STRAW)
[2016-12-12 13:56] LABS: APTT (PATIENT) 24.8 SEC (24.3-30.1); INTERNATIONAL NORMALIZED RATIO 0.9 RATIO
[2016-12-12 14:11] LABS: POTASSIUM 4.3 MEQ/L (3.5-5.1)
--- NOTE | 2016-12-12 15:44 | RADRPT ---
EXAM DATE/TIME: 12/12/2016 14:36 [facility] COMPARISON: No previous studies available for comparison. INDICATIONS : Evaluate for pneumonia, pneumothorax or communicable disease. Pre op heart valve replacement MEDICAL HISTORY : None. SURGICAL HISTORY : None. ENCOUNTER: Initial ACUITY: 1 day PAIN SCORE: 0/10 LOCATION: Bilateral chest FINDINGS: PA and lateral views of the chest demonstrate the lungs to be symmetrically aerated without evidence of mass, infiltrate or effusion. The cardiomediastinal contours are unremarkable. Osseous structure s are intact. CONCLUSION: 1. There are mild COPD changes. The lungs are otherwise clear. Clarence Fournier MD on December 12, 2016 at 15:41 Board Certified Radiologist. This report was verified electronically.
[2016-12-12 16:25] LABS: MRSA PCR NEGATIVE (NEGATIVE); STAPH AUREUS PCR NEGATIVE (NEGATIVE)
--- NOTE | 2016-12-13 13:32 | EKG ---
Date Performed: 12/12/2016 Time Performed: 13:27:12 PTAGE: 81 years EKG: Sinus rhythm POSSIBLE LEFT ATRIAL ENLARGEMENT POSSIBLE LEFT VENTRICULAR HYPERTROPHY ABNORMAL ECG NO PREVIOUS TRACING DOCTOR: Manny Beavers Interpretating Date/Time 12/13/2016 13:30:38
== END ==
LOC: CPRE 12:47
PROVIDERS: ATTEND Thoracic Surgery (Cardiothoracic Vascular Surgery)
DX: Z01.812 Encounter for preprocedural laboratory examination (principal); Z01.811 Encounter for preprocedural respiratory examination; Z01.810 Encounter for preprocedural cardiovascular examination; R94.31 Abnormal electrocardiogram [ECG] [EKG]
CPT/HCPCS: 36415; 71020; 80048; 81001; 85025; 85610; 85730; 87640; 87641; 93005; 94010